=== PATIENT | female | born 1955 | race Caucasian/White ===

== ENCOUNTER 2017-09-01 10:14 | Day surgery (SDC) | payer BC ==
[~2017-09-01 10:14] MED LIST: BALANCED SALT SOLN 15 ML OPH IRRIG
[2017-09-01] MEDS: PHENYLephrine 10% 5 ML OPH OPER (10:57)
[2017-09-01] MEDS: MOXIFLOXACIN 0.5% 3 ML OPH OPER (10:57)
[2017-09-01] MEDS: DICLOFENAC 0.1% 2.5 ML OPH OPER (10:57)
[2017-09-01] MEDS: LIDOCAINE 3.5% GEL TUBE OPER (10:58)
[2017-09-01] MEDS: TROPICAMIDE 1% 3 ML OPH OPER (10:58)
[2017-09-01] MEDS ORDERED: MIDAZOLAM 1 MG/ML 2 ML INJ (13:25)
[2017-09-01] MEDS ORDERED: ONDANSETRON 4 MG INJ (13:25)
[2017-09-01] MEDS ORDERED: FENTAnyl 50 MCG/ML VIAL (13:25)
[2017-09-01] MEDS ORDERED: TETRACAINE 0.5% 4 ML OPH (13:28)
[2017-09-01] MEDS: TETRACAINE 0.5% 4 ML OPH LEFT EYE (13:30)
[2017-09-01] MEDS: LIDOCAINE 1% (MPF) 5 ML VIAL INJ (14:00)
[2017-09-01] MEDS: NA HYALURONATE/CHONDROITIN 0.5 ML SYG LEFT EYE (14:37)
[2017-09-01] MEDS: TOBRAMYCIN/DEXAMETH 3.5 GM OPH OINT LEFT EYE (14:37)
[2017-09-01] MEDS: SODIUM HYALURONATE 10 MG/ML SYG IO (14:37)
[2017-09-01] MEDS ORDERED: OXYCODONE/ACETAMINOPHEN (5/325) TAB PO ×2 (15:00)
[2017-09-01] MEDS ORDERED: METOCLOPRAMIDE 10 MG INJ IV (15:00)
[2017-09-01] MEDS ORDERED: MEPERIDINE 25 MG INJ IV (15:00)
[2017-09-01] MEDS ORDERED: FENTAnyl 50 MCG/ML VIAL IV ×3 (15:00)
[2017-09-01] MEDS ORDERED: TOBRAMYCIN/DEXAMETH 3.5 GM OPH OINT (15:10)
[2017-09-01] MEDS ORDERED: LIDOCAINE 1% (MPF) 10 ML INJ (15:10)
== END 2017-09-01 16:12 | disposition home or self-care (01) ==
LOC: SDS 10:14
DX: H25.12 Age-related nuclear cataract, left eye (principal); E11.9 Type 2 diabetes mellitus without complications; R32 Unspecified urinary incontinence
CPT/HCPCS: 66984; 82962